=== PATIENT | female | born 1955 | race Caucasian/White ===

== ENCOUNTER 2020-03-20 23:09 | Emergency (ER) | payer MEDICARE, OTHER ==
[~2020-03-20] VITALS: Ht 157.5 cm; Wt 65.0 kg
--- NOTE | 2020-03-20 23:18 | NUR ---
EKG AT TRIAGE
[2020-03-20] MEDS ORDERED: PLEASE ENTER ALLERGIES MC SCH (23:45)
[2020-03-21] MEDS ORDERED: hydrALAzine 20 MG/ML, 1ML IV ONE
[2020-03-21] MEDS ORDERED: hydrALAzine 20 MG/ML, 1ML ONE (00:05)
[2020-03-21 00:16] LABS: BASOPHILS % (AUTO) 1 % (0-1); EOSINOPHILS % (AUTO) 1 % (1-7); LYMPHOCYTES % (AUTO) 19 % (22-44); MEAN CORPUSCULAR HEMOGLOBIN 30.7 pg (27.0-34.8); MEAN CORPUSCULAR HGB CONC 33.9 g/dL (32.4-35.8); MEAN PLATELET VOLUME 7.5 fL (7.4-10.4); MONOCYTES % (AUTO) 6 % (2-9); NEUTROPHILS % (AUTO) 74 % (42-75); PLATELET COUNT 327 x10^3/uL (130-400); RED BLOOD COUNT 5.18 x10^6/uL (3.82-5.3); RED CELL DISTRIBUTION WIDTH 14.1 % (9.6-15.2)
[2020-03-21 00:17] LABS: MD NO
[2020-03-21 00:23] LABS: ALBUMIN 3.6 g/dL (3.4-5.0); ANION GAP 5 mmol/L (5-15); CALCIUM 9.3 mg/dL (8.5-10.1); CHLORIDE 109 mmol/L (98-107)
[2020-03-21 00:28] LABS: ALANINE AMINOTRANSFERASE 32 U/L (12-78); ALKALINE PHOSPHATASE 91 U/L (45-117); BILIRUBIN,TOTAL 0.4 mg/dL (0.2-1.0); CREATININE 0.84 mg/dL (0.55-1.02); TOTAL PROTEIN 7.1 g/dL (6.4-8.2); TROPONIN I < 0.015 ng/mL (0.000-0.045)
[2020-03-21 00:33] VITALS: BP 156/75
--- NOTE | 2020-03-21 00:42 | NUR ---
pt resting. NSR @ 72 on monitor. denies CP at this time
[2020-03-21] MEDS ORDERED: LISI-170 PO (00:51)
--- NOTE | 2020-03-21 01:17 | NUR ---
pt discharged with instructions.
== END 2020-03-21 01:35 | disposition home or self-care (01) ==
LOC: ED 03-21 01:20
DX: I10 Essential (primary) hypertension (principal); R94.31 Abnormal electrocardiogram [ECG] [EKG]; Z87.891 Personal history of nicotine dependence
CPT/HCPCS: 36415; 80053; 84484; 85025; 93005; 96374; 99284; J0360